=== PATIENT | male | born 1985 | race Caucasian/White ===

== ENCOUNTER 2023-02-12 18:27 | Inpatient (IN) | payer BC ==
[~2023-02-12] VITALS: Ht 182.9 cm; Wt 138.8 kg
[2023-02-12 18:50] VITALS: BP 102/60; PULSE 115; RESP 20; TEMP 99.2; O2SAT 98
[2023-02-12] MEDS ORDERED: PIPERACILLIN/TAZOBACTAM 4.5 GM in DEXTROSE 5% 100 ML IV ONE (19:55)
[2023-02-12] MEDS ORDERED: NACL 0.9% 2,000 ML IV SCH (19:55)
[2023-02-12] MEDS ORDERED: VANCOMYCIN 1,000 MG in DEXTROSE 5% 250 ML IV ONE (19:55)
[2023-02-12] MEDS ORDERED: PIPERACILLIN/TAZOBACTAM 4.5 GM VIAL IV ONE (20:20)
[2023-02-12] MEDS ORDERED: VANCOMYCIN 1,000 MG VIAL ONE (20:21)
[2023-02-12 20:48] LABS: HEMATOCRIT 33.1 % (36-52); HEMOGLOBIN 10.7 g/dL (12.0-18.0); MEAN CORPUSCULAR HEMOGLOBIN 26 pg (27-31); MEAN CORPUSCULAR HGB CONC 32 g/dL (33-37); MEAN CORPUSCULAR VOLUME 79.3 fL (80-94); PLATELET COUNT (AUTO) 351 K/uL (140-450); RED BLOOD CELL COUNT(AUTO) 4.18 MIL/uL (4.20-6.10); RED CELL DISTRIBUTION WIDTH 14.3 % (11.6-13.7)
[2023-02-12 20:59] LABS: INR 0.95 (0.8-1.2); PARTIAL THROMBOPLASTIN TIME 33.7 secs (22-35.6)
[2023-02-12 21:03] LABS: WHITE BLOOD COUNT (AUTO) 25.4 K/uL (4.8-10.8)
[2023-02-12 21:04] LABS: CREATINE KINASE, TOTAL 43 U/L (39-308)
[2023-02-12 21:05] LABS: LACTIC ACID 1.7 mmol/L (0.4-2.0)
[2023-02-12] MEDS ORDERED: CLINDAMYCIN 900MG/D5W PM 50 ML IV ONE (21:10)
[2023-02-12 21:14] LABS: ALBUMIN 2.3 g/dL (3.4-5.0); CALCIUM 8.8 mg/dL (8.5-10.1); CARBON DIOXIDE 20.7 mmol/L (21-32); POTASSIUM 3.7 mmol/L (3.5-5.1); TOTAL BILIRUBIN 0.6 mg/dL (0.0-1.0); TOTAL PROTEIN, SERUM 8.2 g/dL (6.4-8.2)
[2023-02-12] MEDS ORDERED: fentaNYL citrate 0.05 MG/ML VIAL IVP ONE (21:20)
[2023-02-12 21:21] LABS: BASOPHILS % (MANUAL) 1 % (0-2); LYMPHOCYTES % (MANUAL) 9 % (20-46); MONOCYTES % (MANUAL) 2 % (5-12); PLATELET ESTIMATE ADEQUATE
[2023-02-12 21:28] LABS: C-REACTIVE PROTEIN QUANT 52.5 mg/dL (0.0-0.9)
[2023-02-12] MEDS ORDERED: METF500S8 PO (22:08)
[2023-02-12] MEDS ORDERED: METO25TE2 PO (22:09)
[2023-02-12] MEDS ORDERED: LOSA1TAB PO (22:09)
[2023-02-12] MEDS ORDERED: HYDROmorphone PFS 2 MG/ML SYR IVP ONE (23:30)
[2023-02-13] VITALS (12 sets, daily range): BP systolic 102–124; BP diastolic 53–67; PULSE 83–105; RESP 14–33; TEMP 97.5–100; O2SAT 94–98
[2023-02-13] MEDS: MORPHINE SULFATE 2 MG/ML SYR IVP PRN ×2 (03:51→21:29)
[2023-02-13] MEDS ORDERED: KETOROLAC 30 MG/ML VIAL ONE ×2 (07:00→08:24)
[2023-02-13] MEDS ORDERED: ONDANSETRON 4 MG/2 ML VIAL ONE ×2 (07:00→08:24)
[2023-02-13] MEDS ORDERED: PROPOFOL 200 MG/20 ML VIAL IV ONE ×3 (07:00→08:24)
[2023-02-13] MEDS ORDERED: ACETAMINOPHEN 100 ML IV SCH (07:39)
[2023-02-13] MEDS ORDERED: BUPIVACAINE-MPF 0.5% 30 ML VIAL INJ ONE ×2 (07:44→08:55)
[2023-02-13] MEDS ORDERED: LABETALOL 20 MG/4 ML VIAL IVP PRN (09:35)
[2023-02-13] MEDS ORDERED: NACL 0.9% 1,000 ML IV SCH (09:35)
[2023-02-13] MEDS ORDERED: hydrALAZINE 20 MG/ML VIAL IVP PRN (09:35)
[2023-02-13] MEDS ORDERED: METOCLOPRAMIDE 10 MG/2 ML INJ VIAL IVP PRN (09:35)
[2023-02-13] MEDS ORDERED: HYDROmorphone 1 MG/ML AMP IVP PRN (09:35)
[2023-02-13] MEDS ORDERED: VANCOMYCIN PER PHARMACY MC PRN (09:55)
[2023-02-13] MEDS: PIPERACILLIN/TAZOBACTAM 3.375 GM in DEXTROSE 5% 50 ML IV SCH ×2 (10:32→17:50)
[2023-02-13 11:33] LABS: BASOPHILS % (AUTO) 0.1 % (0.0-2.0); HEMATOCRIT 30.9 % (36-52); LYMPHOCYTES # (AUTO) 1.7 K/uL (2.0-11.5); LYMPHOCYTES % (AUTO) 6.4 % (20.5-51.1); MEAN CORPUSCULAR HEMOGLOBIN 26 pg (27-31); MEAN CORPUSCULAR HGB CONC 32 g/dL (33-37); MEAN CORPUSCULAR VOLUME 79.5 fL (80-94); MONOCYTES # (AUTO) 2.2 K/uL (0.8-1.0); MONOCYTES % (AUTO) 8.1 % (1.7-9.3); NEUTROPHILS # (AUTO) 23.1 K/uL (1.8-7.7); NEUTROPHILS % (AUTO) 85.4 % (42.2-75.2); PLATELET COUNT (AUTO) 312 K/uL (140-450); RED BLOOD CELL COUNT(AUTO) 3.89 MIL/uL (4.20-6.10); RED CELL DISTRIBUTION WIDTH 14.4 % (11.6-13.7)
[2023-02-13 11:48] LABS: ALBUMIN 1.8 g/dL (3.4-5.0); ANION GAP 13.7 (8-16); CALCIUM 8.4 mg/dL (8.5-10.1); CREATININE 1.7 mg/dL (0.6-1.3); POTASSIUM 3.7 mmol/L (3.5-5.1); TOTAL BILIRUBIN 0.7 mg/dL (0.0-1.0); TOTAL PROTEIN, SERUM 7.2 g/dL (6.4-8.2)
[2023-02-13] MEDS: BLOOD GLUCOSE MONITORING 1 DEV DEV FS SCH ×3 (12:23→21:00)
[2023-02-13] MEDS: INSULIN LISPRO SLIDING SCALE 100 UNITS/ML VIAL SUBQ PRN ×3 (12:27→22:15)
[2023-02-13] MEDS: VANCOMYCIN 1.25GM PREMIX 250 ML IV SCH (12:28)
[2023-02-13 17:36] LABS: APPEARANCE,URINE CLEAR (CLEAR); BILIRUBIN,URINE 1+ (NEGATIVE); BLOOD, URINE TRACE-I (NEGATIVE); COLOR,URINE YELLOW (YELLOW); LEUKOCYTE ESTERASE ,URINE NEGATIVE (NEGATIVE); NITRITE, URINE NEGATIVE (NEGATIVE); PROTEIN,URINE 1+ (NEGATIVE); UGLUCOSE NEGATIVE (NEGATIVE)
[2023-02-13 17:49] LABS: ICTOTEST NEGATIVE (NEGATIVE)
[2023-02-13 22:47] LABS: URINE TOTAL PROTEIN 73.9 mg/dL (0-12); URINE TPRO CREAT RATIO 0.5 (0-0.20)
[2023-02-14] VITALS (13 sets, daily range): BP systolic 108–137; BP diastolic 55–70; PULSE 76–99; RESP 18; TEMP 97.4–99.5; O2SAT 95–98
[2023-02-14] MEDS: PIPERACILLIN/TAZOBACTAM 3.375 GM in DEXTROSE 5% 50 ML IV SCH ×5 (00:17→23:55)
[2023-02-14] MEDS: GAUZE TP SCH (01:00)
[2023-02-14] MEDS: HYDROmorphone 1 MG/ML AMP IVP PRN ×3 (02:35→21:06)
[2023-02-14] MEDS: BLOOD GLUCOSE MONITORING 1 DEV DEV FS SCH ×4 (06:27→21:11)
[2023-02-14 06:56] LABS: ANION GAP 12.1 (8-16); CALCIUM 8.5 mg/dL (8.5-10.1); CREATININE 1.2 mg/dL (0.6-1.3); POTASSIUM 4.1 mmol/L (3.5-5.1)
[2023-02-14 11:22] LABS: BASOPHILS # (AUTO) 0.1 K/uL (0.00-0.22); BASOPHILS % (AUTO) 0.3 % (0.0-2.0); EOSINOPHILS # (AUTO) 0.1 K/uL (0-0.4); EOSINOPHILS % (AUTO) 0.3 % (0.0-4.0); HEMATOCRIT 29.6 % (36-52); HEMOGLOBIN 9.5 g/dL (12.0-18.0); LYMPHOCYTES # (AUTO) 2.2 K/uL (2.0-11.5); LYMPHOCYTES % (AUTO) 10.5 % (20.5-51.1); MEAN CORPUSCULAR HEMOGLOBIN 26 pg (27-31); MEAN CORPUSCULAR HGB CONC 32 g/dL (33-37); MEAN CORPUSCULAR VOLUME 80.3 fL (80-94); MONOCYTES # (AUTO) 1.4 K/uL (0.8-1.0); MONOCYTES % (AUTO) 6.5 % (1.7-9.3); NEUTROPHILS # (AUTO) 17.1 K/uL (1.8-7.7); NEUTROPHILS % (AUTO) 82.4 % (42.2-75.2); PLATELET COUNT (AUTO) 297 K/uL (140-450); RED BLOOD CELL COUNT(AUTO) 3.69 MIL/uL (4.20-6.10); RED CELL DISTRIBUTION WIDTH 14.4 % (11.6-13.7); WHITE BLOOD COUNT (AUTO) 20.7 K/uL (4.8-10.8)
[2023-02-14 11:31] LABS: ALBUMIN 1.7 g/dL (3.4-5.0); ANION GAP 12.7 (8-16); CALCIUM 8.5 mg/dL (8.5-10.1); CARBON DIOXIDE 25.4 mmol/L (21-32); CREATININE 1.2 mg/dL (0.6-1.3); POTASSIUM 4.1 mmol/L (3.5-5.1); TOTAL BILIRUBIN 0.7 mg/dL (0.0-1.0); TOTAL PROTEIN, SERUM 7.1 g/dL (6.4-8.2)
[2023-02-14] MEDS: VANCOMYCIN 1.25GM PREMIX 250 ML IV SCH (13:00)
[2023-02-15] MEDS: HYDROmorphone 1 MG/ML AMP IVP PRN ×3 (01:31→20:00)
[2023-02-15] MEDS: GAUZE TP SCH (01:39)
[2023-02-15 04:00] VITALS: BP 96/54; PULSE 82; RESP 18; TEMP 97.1; O2SAT 96
[2023-02-15] MEDS: PIPERACILLIN/TAZOBACTAM 3.375 GM in DEXTROSE 5% 50 ML IV SCH ×4 (05:28→23:58)
[2023-02-15 06:04] LABS: ANION GAP 10.9 (8-16); CALCIUM 8.3 mg/dL (8.5-10.1); CARBON DIOXIDE 27.1 mmol/L (21-32); CREATININE 1.1 mg/dL (0.6-1.3)
[2023-02-15] MEDS: BLOOD GLUCOSE MONITORING 1 DEV DEV FS SCH ×4 (07:30→20:07)
[2023-02-15] MEDS ORDERED: LIDOCAINE MPF 2% 100 MG/5 ML VIAL INJ ONE (07:44)
[2023-02-15] MEDS ORDERED: HYDROGEN PEROXIDE 3% 240 ML BTL TP ONE (07:44)
[2023-02-15] MEDS ORDERED: BUPIVACAINE-MPF/EPI 0.5% 30 ML VIAL INJ ONE (07:44)
[2023-02-15] MEDS ORDERED: LIDOCAINE 2% 1000 MG/50 ML VIAL INJ ONE (07:45)
[2023-02-15] MEDS ORDERED: BUPIVACAINE-MPF 0.5% 30 ML VIAL INJ ONE (07:47)
[2023-02-15 08:00] VITALS: BP 122/61; PULSE 69; RESP 16; TEMP 97.4; O2SAT 96
[2023-02-15] MEDS ORDERED: KETOROLAC 30 MG/ML VIAL ONE (08:20)
[2023-02-15] MEDS ORDERED: PROPOFOL 200 MG/20 ML VIAL IV ONE ×3 (08:20→08:27)
[2023-02-15] MEDS ORDERED: ONDANSETRON 4 MG/2 ML VIAL ONE (08:21)
[2023-02-15] MEDS ORDERED: BLOOD GLUCOSE MONITORING 1 DEV DEV FS SCH (08:50)
[2023-02-15] MEDS ORDERED: NACL 0.9% 1,000 ML IV SCH (08:50)
[2023-02-15] MEDS ORDERED: HYDROmorphone 1 MG/ML AMP IVP PRN (08:50)
[2023-02-15] MEDS ORDERED: hydrALAZINE 20 MG/ML VIAL IVP PRN (09:51)
[2023-02-15] MEDS ORDERED: METOCLOPRAMIDE 10 MG/2 ML INJ VIAL IVP PRN (09:51)
[2023-02-15] MEDS ORDERED: LABETALOL 20 MG/4 ML VIAL IVP PRN (09:51)
[2023-02-15] MEDS: INSULIN LISPRO SLIDING SCALE 100 UNITS/ML VIAL SUBQ PRN ×2 (12:08→16:53)
[2023-02-15 16:00] VITALS: BP 124/66; PULSE 72; RESP 18; TEMP 98.4; O2SAT 99
[2023-02-15 20:00] VITALS: PULSE 83; RESP 17; TEMP 98.7; O2SAT 99
[2023-02-16] MEDS: GAUZE TP SCH (00:05)
[2023-02-16] MEDS: HYDROmorphone 1 MG/ML AMP IVP PRN ×5 (00:05→20:14)
[2023-02-16 04:00] VITALS: BP 110/53; PULSE 80; RESP 17; TEMP 97.6; O2SAT 97
[2023-02-16] MEDS: PIPERACILLIN/TAZOBACTAM 3.375 GM in DEXTROSE 5% 50 ML IV SCH ×4 (05:15→23:46)
[2023-02-16] MEDS: BLOOD GLUCOSE MONITORING 1 DEV DEV FS SCH ×4 (06:37→20:23)
[2023-02-16 08:00] VITALS: BP 117/57; PULSE 83; RESP 18; TEMP 97.4; O2SAT 83; O2SAT 98
[2023-02-16 20:00] VITALS: BP 127/66; PULSE 83; RESP 18; TEMP 97.1; O2SAT 97
[2023-02-17] MEDS: HYDROmorphone 1 MG/ML AMP IVP PRN ×5 (00:16→20:35)
[2023-02-17] MEDS: GAUZE TP SCH (01:03)
[2023-02-17 04:00] VITALS: BP 105/51; PULSE 77; RESP 16; TEMP 97.4; O2SAT 94
[2023-02-17] MEDS: PIPERACILLIN/TAZOBACTAM 3.375 GM in DEXTROSE 5% 50 ML IV SCH ×2 (05:34→12:42)
[2023-02-17 05:57] LABS: BASOPHILS # (AUTO) 0.1 K/uL (0.00-0.22); BASOPHILS % (AUTO) 0.5 % (0.0-2.0); EOSINOPHILS # (AUTO) 0.2 K/uL (0-0.4); EOSINOPHILS % (AUTO) 1.1 % (0.0-4.0); HEMATOCRIT 26.4 % (36-52); HEMOGLOBIN 8.6 g/dL (12.0-18.0); LYMPHOCYTES # (AUTO) 2.5 K/uL (2.0-11.5); LYMPHOCYTES % (AUTO) 17.5 % (20.5-51.1); MEAN CORPUSCULAR HEMOGLOBIN 26 pg (27-31); MEAN CORPUSCULAR HGB CONC 33 g/dL (33-37); MEAN CORPUSCULAR VOLUME 80.3 fL (80-94); MONOCYTES % (AUTO) 6.8 % (1.7-9.3); NEUTROPHILS # (AUTO) 10.6 K/uL (1.8-7.7); NEUTROPHILS % (AUTO) 74.1 % (42.2-75.2); PLATELET COUNT (AUTO) 295 K/uL (140-450); RED BLOOD CELL COUNT(AUTO) 3.29 MIL/uL (4.20-6.10); RED CELL DISTRIBUTION WIDTH 14.2 % (11.6-13.7); WHITE BLOOD COUNT (AUTO) 14.3 K/uL (4.8-10.8)
[2023-02-17 06:13] LABS: ANION GAP 10.2 (8-16); CREATININE 0.9 mg/dL (0.6-1.3); POTASSIUM 4.2 mmol/L (3.5-5.1)
[2023-02-17] MEDS: BLOOD GLUCOSE MONITORING 1 DEV DEV FS SCH ×4 (06:53→21:58)
[2023-02-17 08:00] VITALS: BP 133/73; PULSE 77; PULSE 79; RESP 19; RESP 20; TEMP 97.8; O2SAT 98
[2023-02-17 20:00] VITALS: PULSE 84; RESP 18; TEMP 97.8; O2SAT 97
[2023-02-18] VITALS: BP 130/90; PULSE 85; RESP 18; TEMP 98.6; O2SAT 97
[2023-02-18] MEDS: HYDROmorphone 1 MG/ML AMP IVP PRN ×5 (00:56→20:48)
[2023-02-18] MEDS: GAUZE TP SCH (01:00)
[2023-02-18] MEDS: BLOOD GLUCOSE MONITORING 1 DEV DEV FS SCH ×4 (06:33→20:15)
[2023-02-18 08:00] VITALS: BP 110/61; PULSE 84; RESP 19; TEMP 97.4; O2SAT 97; O2SAT 99
[2023-02-18] MEDS: INSULIN LISPRO SLIDING SCALE 100 UNITS/ML VIAL SUBQ PRN (13:20)
[2023-02-18 16:00] VITALS: BP 119/61; PULSE 82; RESP 20; TEMP 98.7; O2SAT 97
[2023-02-18] MEDS: PIPERACILLIN/TAZOBACTAM 3.375 GM in DEXTROSE 5% 50 ML IV SCH ×2 (18:02→23:39)
[2023-02-18 20:00] VITALS: PULSE 86; RESP 18; TEMP 99.4; O2SAT 98
[2023-02-19] VITALS: BP 123/66; PULSE 81; RESP 16; TEMP 99.1; O2SAT 99
[2023-02-19] MEDS: HYDROmorphone 1 MG/ML AMP IVP PRN ×5 (00:57→20:19)
[2023-02-19] MEDS: GAUZE TP SCH ×2 (00:57→23:32)
[2023-02-19] MEDS: PIPERACILLIN/TAZOBACTAM 3.375 GM in DEXTROSE 5% 50 ML IV SCH ×4 (05:01→23:30)
[2023-02-19] MEDS: BLOOD GLUCOSE MONITORING 1 DEV DEV FS SCH ×4 (06:38→20:27)
[2023-02-19 08:00] VITALS: BP 114/64; PULSE 84; PULSE 86; PULSE 88; RESP 18; TEMP 97; O2SAT 97
[2023-02-19] MEDS ORDERED: AMPI1PDS19 IJ (12:59)
[2023-02-19 16:00] VITALS: BP 124/66; PULSE 88; RESP 18; TEMP 97.2; O2SAT 97
[2023-02-19] MEDS: INSULIN LISPRO SLIDING SCALE 100 UNITS/ML VIAL SUBQ PRN ×2 (17:54→20:29)
[2023-02-19 20:00] VITALS: BP 111/58; PULSE 93; RESP 20; TEMP 98.6; O2SAT 98
[2023-02-20] VITALS (7 sets, daily range): BP systolic 103–119; BP diastolic 60–68; PULSE 78–93; RESP 18–20; TEMP 96.5–99.3; O2SAT 95–99
[2023-02-20] MEDS: HYDROmorphone 1 MG/ML AMP IVP PRN ×5 (00:37→20:26)
[2023-02-20] MEDS: PIPERACILLIN/TAZOBACTAM 3.375 GM in DEXTROSE 5% 50 ML IV SCH ×4 (05:32→23:20)
[2023-02-20] MEDS: BLOOD GLUCOSE MONITORING 1 DEV DEV FS SCH ×4 (06:22→20:30)
[2023-02-21] VITALS: BP 118/63; PULSE 84; RESP 20; TEMP 98.8; O2SAT 98
[2023-02-21] MEDS: HYDROmorphone 1 MG/ML AMP IVP PRN ×5 (00:37→22:25)
[2023-02-21] MEDS: GAUZE TP SCH (00:46)
[2023-02-21 05:00] VITALS: BP 120/66; PULSE 80; RESP 19; TEMP 99.1; O2SAT 97
[2023-02-21] MEDS: PIPERACILLIN/TAZOBACTAM 3.375 GM in DEXTROSE 5% 50 ML IV SCH (05:09)
[2023-02-21] MEDS: BLOOD GLUCOSE MONITORING 1 DEV DEV FS SCH ×4 (06:37→20:17)
[2023-02-21 08:00] VITALS: PULSE 85; RESP 20; TEMP 97.4; O2SAT 97
[2023-02-21 10:40] LABS: ALBUMIN 1.9 g/dL (3.4-5.0); ANION GAP 7.4 (8-16); CALCIUM 8.3 mg/dL (8.5-10.1); CARBON DIOXIDE 29.8 mmol/L (21-32); POTASSIUM 4.2 mmol/L (3.5-5.1); TOTAL BILIRUBIN 0.3 mg/dL (0.0-1.0); TOTAL PROTEIN, SERUM 7.7 g/dL (6.4-8.2)
[2023-02-21] MEDS ORDERED: PROPOFOL 200 MG/20 ML VIAL IV ONE (12:32)
[2023-02-21] MEDS ORDERED: fentaNYL citrate 0.05 MG/ML VIAL ONE (12:32)
[2023-02-21] MEDS ORDERED: BUPIVACAINE-MPF 0.5% 30 ML VIAL INJ ONE (12:44)
[2023-02-21] MEDS ORDERED: SEVOFLURANE 250 ML BTL INH ONE (12:55)
[2023-02-21] MEDS ORDERED: HYDROGEN PEROXIDE 3% 240 ML BTL TP ONE (12:55)
[2023-02-21] MEDS: NACL 0.9% 1,000 ML IV SCH ×2 (14:00→22:24)
[2023-02-21] MEDS ORDERED: MEPERIDINE 25 MG/ML SYR IVP PRN (14:00)
[2023-02-21] MEDS ORDERED: diphenhydrAMINE 50 MG/ML VIAL IVP PRN (14:00)
[2023-02-21] MEDS ORDERED: HYDROmorphone 1 MG/ML AMP IVP PRN (14:00)
[2023-02-21] MEDS ORDERED: ONDANSETRON 4 MG/2 ML VIAL IVP PRN (14:00)
[2023-02-21] MEDS ORDERED: BLOOD GLUCOSE MONITORING 1 DEV DEV FS SCH (14:10)
[2023-02-21] MEDS: AMPICILLIN/SULBACTAM 3 GM in NACL 0.9% 100 ML IV SCH ×2 (15:29→18:17)
[2023-02-21 16:00] VITALS: BP 105/69; PULSE 85; RESP 18; TEMP 97.4; O2SAT 97
[2023-02-21 18:07] LABS: BASOPHILS # (AUTO) 0.1 K/uL (0.00-0.22); EOSINOPHILS # (AUTO) 0.1 K/uL (0-0.4); EOSINOPHILS % (AUTO) 1.4 % (0.0-4.0); HEMATOCRIT 28.5 % (36-52); HEMOGLOBIN 9.3 g/dL (12.0-18.0); LYMPHOCYTES % (AUTO) 20.5 % (20.5-51.1); MEAN CORPUSCULAR HEMOGLOBIN 26 pg (27-31); MEAN CORPUSCULAR HGB CONC 33 g/dL (33-37); MEAN CORPUSCULAR VOLUME 80.7 fL (80-94); MONOCYTES # (AUTO) 0.6 K/uL (0.8-1.0); MONOCYTES % (AUTO) 5.7 % (1.7-9.3); NEUTROPHILS % (AUTO) 71.4 % (42.2-75.2); PLATELET COUNT (AUTO) 544 K/uL (140-450); RED BLOOD CELL COUNT(AUTO) 3.53 MIL/uL (4.20-6.10); RED CELL DISTRIBUTION WIDTH 14.5 % (11.6-13.7); WHITE BLOOD COUNT (AUTO) 9.7 K/uL (4.8-10.8)
[2023-02-21] MEDS ORDERED: HYDROcodone/APAP 10/325 MG 1 TAB TAB PO PRN (18:30)
[2023-02-21 20:00] VITALS: BP 112/60; PULSE 89; RESP 17; TEMP 97.3; O2SAT 97
[2023-02-22] MEDS: AMPICILLIN/SULBACTAM 3 GM in NACL 0.9% 100 ML IV SCH ×3 (00:15→12:31)
[2023-02-22] MEDS: HYDROmorphone 1 MG/ML AMP IVP PRN ×4 (01:26→12:30)
[2023-02-22] MEDS: GAUZE TP SCH (01:40)
[2023-02-22 04:00] VITALS: BP 113/63; PULSE 89; RESP 16; TEMP 97.3; O2SAT 93
[2023-02-22] MEDS: NACL 0.9% 1,000 ML IV SCH ×2 (06:29→15:00)
[2023-02-22] MEDS: BLOOD GLUCOSE MONITORING 1 DEV DEV FS SCH ×3 (06:33→16:30)
[2023-02-22 08:00] VITALS: BP 130/70; PULSE 70; PULSE 79; RESP 18; TEMP 97.3; O2SAT 97; O2SAT 98
[2023-02-22] MEDS ORDERED: ACET-9535 PO (11:40)
[2023-02-22] MEDS: INSULIN LISPRO SLIDING SCALE 100 UNITS/ML VIAL SUBQ PRN (12:14)
[2023-02-22] MEDS ORDERED: GAUZE TP SCH (13:00)
== END 2023-02-22 18:45 | disposition home or self-care (01) | DRG 854 ==
LOC: MED 18:27 → MIC 02-13 00:12 → MTU 02-13 18:40
PROVIDERS: ADMIT Hospitalist; ATTEND Hospitalist
PROC: 0YBN0ZZ Excision of Left Foot, Open Approach (ICD-10-PCS; 2023-02-13)
PROC: 0YB Anatomical Regions, Lower Extremities, Excision (ICD-10-PCS; 2023-02-15)
PROC: 0Y6N0Z7 Detachment at Left Foot, Complete 4th Ray, Open Approach (ICD-10-PCS; principal; 2023-02-21 12:30)
DX: A41.9 Sepsis, unspecified organism (principal); E11.52 Type 2 diabetes mellitus with diabetic peripheral angiopathy with gangrene; I96 Gangrene, not elsewhere classified; L02.612 Cutaneous abscess of left foot; Z68.41 Body mass index [BMI] 40.0-44.9, adult; M86.8X7 Other osteomyelitis, ankle and foot; L03.116 Cellulitis of left lower limb; N17.9 Acute kidney failure, unspecified; Z20.822 Contact with and (suspected) exposure to COVID-19; D64.9 Anemia, unspecified; E11.621 Type 2 diabetes mellitus with foot ulcer; L97.529 Non-pressure chronic ulcer of other part of left foot with unspecified severity; E11.40 Type 2 diabetes mellitus with diabetic neuropathy, unspecified; I10 Essential (primary) hypertension; E78.5 Hyperlipidemia, unspecified; E66.01 Morbid (severe) obesity due to excess calories; E11.69 Type 2 diabetes mellitus with other specified complication
CPT/HCPCS: 36415; 71045; 73590; 73630; 76770; 80048; 80053; 81003; 82550; 82570; 82948; 83605; 83880; 84484; 85025; 85610; 85730; 86140; 86886; 86900; 86901; 87040; 87070; 87075; 87081; 87086; 87186; 87205; 88304; 88305; 88311; 93925; 96365; 96367; 96375; 99291; J0295; J1170; J1815; J1885; J2001; J2270; J2405; J2543; J2704; J3010; J3370; J3372; J3490; J7030; J7060; Q0092